=== PATIENT | female | born 1955 | race Caucasian/White ===

== ENCOUNTER → 2020-06-12 | Outpatient (CLI) | payer MEDICAID, MEDICARE | END | disposition home or self-care (01) | LOC: RAD 11:25 | PROVIDERS: ATTEND Internal Medicine Cardiovascular Disease | DX: I27.9 Pulmonary heart disease, unspecified (principal); R06.02 Shortness of breath; K44.9 Diaphragmatic hernia without obstruction or gangrene | CPT/HCPCS: 71045; 78582; A9540; A9558 ==

== ENCOUNTER → 2020-08-13 | Outpatient (CLI) | payer MEDICARE | END | disposition home or self-care (01) | LOC: CVU 12:56 | PROVIDERS: ATTEND Internal Medicine Cardiovascular Disease | DX: I36.1 Nonrheumatic tricuspid (valve) insufficiency (principal); I86.8 Varicose veins of other specified sites; R60.0 Localized edema; I51.7 Cardiomegaly; I87.2 Venous insufficiency (chronic) (peripheral) | CPT/HCPCS: 93306; 93970 ==

== ENCOUNTER 2020-10-03 13:02 | Inpatient (IN) | payer MEDICARE ==
[~2020-10-03] VITALS: Ht 165.1 cm; Wt 65.8 kg
--- NOTE | 2020-10-03 13:55 | NUR ---
delphi developer: Pt ambulatory to room from lobby at this time.
[2020-10-03] MEDS ORDERED: SODIUM CHLORIDE 0.9% 1,000ML IVBOLUS ONE (14:30)
[2020-10-03] MEDS ORDERED: ONDANSETRON 2MG/ML, 2ML IVPush ONE ×2 (14:30→19:00)
[2020-10-03] MEDS ORDERED: ONDANSETRON 2MG/ML, 2ML ONE (14:31)
[2020-10-03] MEDS ORDERED: MORPHINE SULFATE 4 MG/ML, 1ML ONE (14:31)
[2020-10-03] MEDS: MORPHINE SULFATE 4 MG/ML, 1ML IVPush PRN ×3 (14:34→23:47)
[2020-10-03 14:42] LABS: BASOPHILS % (AUTO) 1 % (0-1); EOSINOPHILS % (AUTO) 0 % (1-7); LYMPHOCYTES % (AUTO) 12 % (22-44); MEAN CORPUSCULAR HEMOGLOBIN 22.2 pg (27.0-34.8); MEAN CORPUSCULAR HGB CONC 30.8 g/dL (32.4-35.8); MEAN PLATELET VOLUME 8.3 fL (7.4-10.4); MONOCYTES % (AUTO) 9 % (2-9); NEUTROPHILS % (AUTO) 78 % (42-75); PLATELET COUNT 360 x10^3/uL (130-400); RED BLOOD COUNT 5.89 x10^6/uL (3.82-5.3); RED CELL DISTRIBUTION WIDTH 19.4 % (9.6-15.2)
[2020-10-03 14:53] LABS: ALANINE AMINOTRANSFERASE 100 U/L (12-78); ALBUMIN 3.1 g/dL (3.4-5.0); ANION GAP 8 mmol/L (5-15); CALCIUM 8.9 mg/dL (8.5-10.1); CHLORIDE 106 mmol/L (98-107)
[2020-10-03 14:55] LABS: ALKALINE PHOSPHATASE 148 U/L (45-117); BILIRUBIN,TOTAL 0.7 mg/dL (0.2-1.0); TOTAL PROTEIN 7.9 g/dL (6.4-8.2)
[2020-10-03 15:04] LABS: ANISOCYTOSIS 1+; MICROCYTOSIS 1+; OVALOCYTES 1+
[2020-10-03 15:05] LABS: <PLATELET ESTIMATE> ADEQUATE; <PLT MORPHOLOGY> NORMAL PLT MORPH; HYPOCHROMIA 1+
[2020-10-03] MEDS ORDERED: OMNIPAQUE 350 MG/ML, 100ML BOTTLE ONE (15:51)
[2020-10-03 16:46] LABS: INTERNATIONAL NORMALIZED RATIO 1.05 (0.93-1.1); PARTIAL THROMBOPLASTIN TIME 28 Seconds (25-31); PROTHROMBIN TIME 11.2 Seconds (9.6-11.5)
[2020-10-03] MEDS ORDERED: HEPARIN 25,000 UNITS/250ML PMX 250 ML IV PRN (17:00)
[2020-10-03] MEDS ORDERED: HEPARIN 5,000 UNITS/ML, 1ML IV PRN (17:00)
[2020-10-03] MEDS ORDERED: HEPARIN 5,000 UNITS/ML, 1ML IV ONE (17:00)
[2020-10-03] MEDS ORDERED: HEPARIN 25,000 UNITS/250ML PMX 250 ML ONE (17:06)
[2020-10-03] MEDS ORDERED: HEPARIN 5,000 UNITS/ML, 1ML ONE (17:06)
--- NOTE | 2020-10-03 17:15 | NUR ---
HEPARIN DOSAGES CONFIRMED WITH PHARMACY. CECILLE Frederick RN VERIFIED HEPARIN BEDSIDE.
--- NOTE | 2020-10-03 18:00 | NUR ---
REPORT TO TAY PALENCIA
[2020-10-03] MEDS ORDERED: SODIUM CHLORIDE 0.9% 250 ML IV SCH (19:00)
[2020-10-03] MEDS ORDERED: hydrALAzine 20 MG/ML, 1ML IVPush PRN (19:00)
[2020-10-03] MEDS ORDERED: BISACODYL 10 MG SUPP PR PRN (19:00)
[2020-10-03] MEDS ORDERED: ONDANSETRON ODT 4 MG PO PRN (19:00)
[2020-10-03] MEDS ORDERED: LORazepam 0.5MG TABLET PO PRN (19:00)
[2020-10-03] MEDS ORDERED: ACETAMINOPHEN 325 MG TABLET PO PRN (19:00)
[2020-10-03] MEDS ORDERED: MORPHINE SULFATE 4 MG/ML, 1ML IVPush ONE (19:00)
[2020-10-03] MEDS ORDERED: ONDANSETRON 2MG/ML, 2ML IVPush PRN (19:00)
[2020-10-03] MEDS ORDERED: NITROGLYCERIN 0.4 MG BOTTLE (25 TABS) SL PRN (19:00)
[2020-10-03 19:21] VITALS: BP 128/87
[2020-10-03 19:41] LABS: TROPONIN I 0.062 ng/mL (0.000-0.045)
[2020-10-03 22:47] VITALS: BP 139/72
[2020-10-03] MEDS: SODIUM CHLORIDE 0.9% 1,000 ML IV SCH (23:45)
[2020-10-04 00:45] VITALS: BP 131/88
[2020-10-04 02:59] LABS: TROPONIN I 0.061 ng/mL (0.000-0.045)
[2020-10-04 05:46] LABS: BASOPHILS % (AUTO) 0 % (0-1); EOSINOPHILS % (AUTO) 0 % (1-7); LYMPHOCYTES % (AUTO) 5 % (22-44); MEAN CORPUSCULAR HEMOGLOBIN 22.2 pg (27.0-34.8); MEAN CORPUSCULAR HGB CONC 31.1 g/dL (32.4-35.8); MEAN PLATELET VOLUME 8.2 fL (7.4-10.4); MONOCYTES % (AUTO) 7 % (2-9); NEUTROPHILS % (AUTO) 88 % (42-75); PLATELET COUNT 367 x10^3/uL (130-400); RED BLOOD COUNT 5.35 x10^6/uL (3.82-5.3); RED CELL DISTRIBUTION WIDTH 19.6 % (9.6-15.2)
[2020-10-04 05:54] LABS: ALANINE AMINOTRANSFERASE 81 U/L (12-78); ALBUMIN 2.6 g/dL (3.4-5.0); ANION GAP 5 mmol/L (5-15); CALCIUM 7.8 mg/dL (8.5-10.1); CHLORIDE 107 mmol/L (98-107)
[2020-10-04 06:03] LABS: ALKALINE PHOSPHATASE 129 U/L (45-117); BILIRUBIN,TOTAL 0.7 mg/dL (0.2-1.0); CHOL/HDL RATIO 3.1; CHOLESTEROL, TOTAL 141 mg/dL (140-239); CREATININE 1.14 mg/dL (0.55-1.02); HDL CHOL % 33 % (28-40); HDL CHOLESTEROL (DIRECT) 46 mg/dL (40-60); LDL CHOLESTEROL,CALCULATED 79 mg/dL (54-169); LDL/HDL RATIO 1.7 (0.5-3.0); TOTAL PROTEIN 6.9 g/dL (6.4-8.2); TRIGLYCERIDES 81 mg/dL (50-200); VLDL CHOLESTEROL 16 mg/dL (0-25)
[2020-10-04 06:22] LABS: MICROSCOPIC AUTO
[2020-10-04] MEDS: OXYcodone IR 5MG TABLET PO PRN (06:24)
[2020-10-04 06:25] VITALS: BP 125/84
[2020-10-04] MEDS ORDERED: LEVO75CA5 PO (06:35)
[2020-10-04] MEDS: SENNA/DOCUSATE TABLET PO SCH (08:13)
[2020-10-04] MEDS: PANTOPRAZOLE 40MG TABLET PO SCH (08:13)
[2020-10-04] MEDS: MORPHINE SULFATE 4 MG/ML, 1ML IVPush PRN (08:35)
[2020-10-04] MEDS: LEVOTHYROXINE 75 MCG TABLET PO SCH (09:00)
[2020-10-04 13:11] VITALS: BP 113/7
[2020-10-04] MEDS: CEFTRIAXONE 1,000 MG in DEXTROSE 5% 50 ML IVPB SCH (13:52)
[2020-10-04] MEDS: SODIUM CHLORIDE 0.9% 1,000 ML IV SCH (16:39)
[2020-10-04] MEDS ORDERED: OMNIPAQUE 350 MG/ML, 75ML BOTTLE ONE (17:28)
[2020-10-04 18:44] LABS: INTERNATIONAL NORMALIZED RATIO 1.07 (0.93-1.1); PROTHROMBIN TIME 11.4 Seconds (9.6-11.5)
[2020-10-04] MEDS: ENOXAPARIN 60 MG/0.6 ML SQ SCH (18:47)
[2020-10-04 19:07] VITALS: BP 119/79
[2020-10-04] MEDS ORDERED: WARFARIN 5 MG TABLET PO-COUM ONE (19:30)
[2020-10-05] VITALS: BP 102/71
[2020-10-05 05:31] LABS: BASOPHILS % (AUTO) 0 % (0-1); EOSINOPHILS % (AUTO) 0 % (1-7); LYMPHOCYTES % (AUTO) 8 % (22-44); MEAN CORPUSCULAR HEMOGLOBIN 21.8 pg (27.0-34.8); MEAN CORPUSCULAR HGB CONC 30.7 g/dL (32.4-35.8); MEAN PLATELET VOLUME 8.3 fL (7.4-10.4); MONOCYTES % (AUTO) 8 % (2-9); NEUTROPHILS % (AUTO) 83 % (42-75); PLATELET COUNT 311 x10^3/uL (130-400); RED BLOOD COUNT 5.02 x10^6/uL (3.82-5.3)
[2020-10-05 05:37] LABS: INTERNATIONAL NORMALIZED RATIO 1.04 (0.93-1.1); PROTHROMBIN TIME 11.1 Seconds (9.6-11.5)
[2020-10-05 05:40] LABS: CHLORIDE 107 mmol/L (98-107)
[2020-10-05 05:50] LABS: ALANINE AMINOTRANSFERASE 57 U/L (12-78); ALBUMIN 2.1 g/dL (3.4-5.0); ALKALINE PHOSPHATASE 98 U/L (45-117); ANION GAP 5 mmol/L (5-15); BILIRUBIN,TOTAL 0.5 mg/dL (0.2-1.0); CALCIUM 7.8 mg/dL (8.5-10.1); CREATININE 0.98 mg/dL (0.55-1.02); TOTAL PROTEIN 5.9 g/dL (6.4-8.2)
[2020-10-05] MEDS: ENOXAPARIN 60 MG/0.6 ML SQ SCH ×2 (06:28→18:22)
[2020-10-05] MEDS: LEVOTHYROXINE 75 MCG TABLET PO SCH (06:28)
[2020-10-05] MEDS: PANTOPRAZOLE 40MG TABLET PO SCH (06:28)
[2020-10-05 09:18] VITALS: BP 108/75
[2020-10-05] MEDS: SODIUM CHLORIDE 0.9% 1,000 ML IV SCH (09:52)
[2020-10-05] MEDS: SENNA/DOCUSATE TABLET PO SCH (09:52)
[2020-10-05] MEDS: OXYcodone IR 5MG TABLET PO PRN ×2 (09:53→16:47)
[2020-10-05] MEDS: CEFTRIAXONE 1,000 MG in DEXTROSE 5% 50 ML IVPB SCH (14:46)
[2020-10-05 15:24] VITALS: BP 98/64
[2020-10-05] MEDS ORDERED: NITROGLYCERIN 0.4 MG/SPRAY SL PRN (16:00)
[2020-10-05] MEDS ORDERED: NITROGLYCERIN 0.4 MG BOTTLE (25 TABS) SL PRN (16:00)
[2020-10-05] MEDS ORDERED: WARFARIN 5 MG TABLET PO-COUM ONE (18:00)
[2020-10-05 21:14] VITALS: BP 102/67
[2020-10-05] MEDS: MORPHINE SULFATE 4 MG/ML, 1ML IVPush PRN (21:21)
[2020-10-06 02:02] VITALS: BP 96/65
[2020-10-06] MEDS: SODIUM CHLORIDE 0.9% 1,000 ML IV SCH (02:06)
[2020-10-06 05:21] LABS: INTERNATIONAL NORMALIZED RATIO 1.07 (0.93-1.1); PROTHROMBIN TIME 11.4 Seconds (9.6-11.5)
[2020-10-06] MEDS: PANTOPRAZOLE 40MG TABLET PO SCH (05:30)
[2020-10-06] MEDS: ENOXAPARIN 60 MG/0.6 ML SQ SCH ×2 (05:30→18:29)
[2020-10-06] MEDS: LEVOTHYROXINE 75 MCG TABLET PO SCH (05:30)
[2020-10-06] MEDS: OXYcodone IR 5MG TABLET PO PRN ×3 (05:31→22:33)
[2020-10-06 07:50] VITALS: BP_SYST 101; BP_SYST 94; BP_DIAS 68
[2020-10-06] MEDS: SENNA/DOCUSATE TABLET PO SCH (09:28)
[2020-10-06] MEDS: POLYETHYLENE GLYCOL 17 GM PACKET PO PRN (09:29)
[2020-10-06] MEDS: CEFTRIAXONE 1,000 MG in DEXTROSE 5% 50 ML IVPB SCH (14:31)
[2020-10-06 15:00] VITALS: BP 103/76
[2020-10-06] MEDS ORDERED: WARFARIN 5 MG TABLET PO-COUM ONE (18:00)
[2020-10-06 18:41] VITALS: BP 94/61
[2020-10-07 01:08] VITALS: BP 106/68
[2020-10-07 04:29] LABS: BASOPHILS % (AUTO) 0 % (0-1); EOSINOPHILS % (AUTO) 1 % (1-7); LYMPHOCYTES % (AUTO) 16 % (22-44); MEAN CORPUSCULAR HEMOGLOBIN 22.2 pg (27.0-34.8); MEAN CORPUSCULAR HGB CONC 31.6 g/dL (32.4-35.8); MEAN PLATELET VOLUME 8.2 fL (7.4-10.4); MONOCYTES % (AUTO) 11 % (2-9); NEUTROPHILS % (AUTO) 72 % (42-75); PLATELET COUNT 350 x10^3/uL (130-400); RED BLOOD COUNT 4.69 x10^6/uL (3.82-5.3); RED CELL DISTRIBUTION WIDTH 19.5 % (9.6-15.2)
[2020-10-07 04:35] LABS: INTERNATIONAL NORMALIZED RATIO 1.25 (0.93-1.1); PROTHROMBIN TIME 13.2 Seconds (9.6-11.5)
[2020-10-07 04:38] LABS: ANION GAP 3 mmol/L (5-15); CALCIUM 7.9 mg/dL (8.5-10.1); CHLORIDE 109 mmol/L (98-107)
[2020-10-07 04:39] LABS: CREATININE 1.05 mg/dL (0.55-1.02)
[2020-10-07] MEDS: PANTOPRAZOLE 40MG TABLET PO SCH (05:45)
[2020-10-07] MEDS: ENOXAPARIN 60 MG/0.6 ML SQ SCH ×2 (05:45→17:54)
[2020-10-07] MEDS: LEVOTHYROXINE 75 MCG TABLET PO SCH (05:45)
[2020-10-07] MEDS: OXYcodone IR 5MG TABLET PO PRN ×2 (06:21→14:28)
[2020-10-07 06:35] VITALS: BP 109/70
[2020-10-07] MEDS: SENNA/DOCUSATE TABLET PO SCH ×2 (09:16→21:17)
[2020-10-07] MEDS: POLYETHYLENE GLYCOL 17 GM PACKET PO SCH (10:13)
[2020-10-07 12:10] VITALS: BP 121/81
[2020-10-07] MEDS: CEFTRIAXONE 1,000 MG in DEXTROSE 5% 50 ML IVPB SCH (14:02)
[2020-10-07] MEDS ORDERED: WARFARIN 10 MG TABLET PO-COUM ONE (18:00)
[2020-10-07 18:56] VITALS: BP 110/76
[2020-10-07 23:32] VITALS: BP 108/71
[2020-10-08] MEDS: OXYcodone IR 5MG TABLET PO PRN ×4 (03:00→20:52)
[2020-10-08 04:53] LABS: BASOPHILS % (AUTO) 1 % (0-1); EOSINOPHILS % (AUTO) 2 % (1-7); LYMPHOCYTES % (AUTO) 15 % (22-44); MEAN CORPUSCULAR HEMOGLOBIN 22.4 pg (27.0-34.8); MEAN CORPUSCULAR HGB CONC 31.8 g/dL (32.4-35.8); MEAN PLATELET VOLUME 8.8 fL (7.4-10.4); MONOCYTES % (AUTO) 11 % (2-9); NEUTROPHILS % (AUTO) 71 % (42-75); PLATELET COUNT 308 x10^3/uL (130-400); RED BLOOD COUNT 4.67 x10^6/uL (3.82-5.3); RED CELL DISTRIBUTION WIDTH 19.2 % (9.6-15.2)
[2020-10-08 04:56] LABS: INTERNATIONAL NORMALIZED RATIO 1.65 (0.93-1.1); PROTHROMBIN TIME 17.2 Seconds (9.6-11.5)
[2020-10-08 05:00] LABS: ANION GAP 5 mmol/L (5-15); CALCIUM 8.1 mg/dL (8.5-10.1); CHLORIDE 107 mmol/L (98-107)
[2020-10-08 05:02] LABS: CREATININE 0.93 mg/dL (0.55-1.02)
[2020-10-08] MEDS: ENOXAPARIN 60 MG/0.6 ML SQ SCH ×2 (05:53→17:48)
[2020-10-08] MEDS: LEVOTHYROXINE 75 MCG TABLET PO SCH (05:53)
[2020-10-08] MEDS: PANTOPRAZOLE 40MG TABLET PO SCH (05:53)
[2020-10-08 06:26] VITALS: BP 119/79
[2020-10-08] MEDS: SENNA/DOCUSATE TABLET PO SCH ×2 (09:20→20:34)
[2020-10-08] MEDS: POLYETHYLENE GLYCOL 17 GM PACKET PO SCH ×2 (09:20→20:34)
[2020-10-08] MEDS ORDERED: POTASSIUM CHLORIDE 20 MEQ TAB.ER.PRT PO ONE (12:00)
[2020-10-08 13:23] VITALS: BP 115/76
[2020-10-08] MEDS: CEFTRIAXONE 1,000 MG in DEXTROSE 5% 50 ML IVPB SCH (14:15)
[2020-10-08] MEDS ORDERED: WARFARIN 7.5 MG TABLET PO-COUM ONE (18:00)
[2020-10-08 19:54] VITALS: BP 126/82
[2020-10-09 00:57] VITALS: BP 130/83
[2020-10-09] MEDS: POLYETHYLENE GLYCOL 17 GM PACKET PO PRN (04:22)
[2020-10-09 05:06] LABS: BASOPHILS % (AUTO) 1 % (0-1); EOSINOPHILS % (AUTO) 2 % (1-7); LYMPHOCYTES % (AUTO) 13 % (22-44); MEAN CORPUSCULAR HEMOGLOBIN 22.1 pg (27.0-34.8); MEAN CORPUSCULAR HGB CONC 31.2 g/dL (32.4-35.8); MEAN PLATELET VOLUME 8.4 fL (7.4-10.4); MONOCYTES % (AUTO) 11 % (2-9); NEUTROPHILS % (AUTO) 73 % (42-75); PLATELET COUNT 370 x10^3/uL (130-400); RED BLOOD COUNT 4.84 x10^6/uL (3.82-5.3); RED CELL DISTRIBUTION WIDTH 19.2 % (9.6-15.2)
[2020-10-09 05:17] LABS: INTERNATIONAL NORMALIZED RATIO 2.68 (0.93-1.1); PROTHROMBIN TIME 27.4 Seconds (9.6-11.5)
[2020-10-09 05:19] LABS: CALCIUM 8.6 mg/dL (8.5-10.1)
[2020-10-09 05:31] LABS: ANION GAP 3 mmol/L (5-15); CHLORIDE 106 mmol/L (98-107)
[2020-10-09] MEDS: ENOXAPARIN 60 MG/0.6 ML SQ SCH (06:15)
[2020-10-09 06:47] VITALS: BP 122/80
[2020-10-09] MEDS: SENNA/DOCUSATE TABLET PO SCH (08:16)
[2020-10-09] MEDS: POLYETHYLENE GLYCOL 17 GM PACKET PO SCH (08:16)
[2020-10-09] MEDS: OXYcodone IR 5MG TABLET PO PRN (08:17)
[2020-10-09] MEDS: PANTOPRAZOLE 40MG TABLET PO SCH (08:17)
[2020-10-09] MEDS: LEVOTHYROXINE 75 MCG TABLET PO SCH (08:17)
[2020-10-09 12:42] LABS: INTERNATIONAL NORMALIZED RATIO 3.17 (0.93-1.1); PROTHROMBIN TIME 32.1 Seconds (9.6-11.5)
[2020-10-09] MEDS ORDERED: CEFD300C37 PO (12:48)
[2020-10-09] MEDS ORDERED: WARF1TAB74 PO (13:20)
== END 2020-10-09 13:37 | disposition home or self-care (01) | DRG 698 ==
LOC: ED 16:40 → EDIP 17:00 → 3N 18:15 → 5SO 22:40 → DCLOUNGE 10-09 13:29
PROVIDERS: ADMIT Internal Medicine; ATTEND Hospitalist
DX: N28.0 Ischemia and infarction of kidney (principal); I26.99 Other pulmonary embolism without acute cor pulmonale; N39.0 Urinary tract infection, site not specified; B96.20 Unspecified Escherichia coli [E. coli] as the cause of diseases classified elsewhere; E03.9 Hypothyroidism, unspecified; I27.20 Pulmonary hypertension, unspecified; I72.9 Aneurysm of unspecified site; I07.1 Rheumatic tricuspid insufficiency; K59.00 Constipation, unspecified; Z79.01 Long term (current) use of anticoagulants; Z86.711 Personal history of pulmonary embolism; Z91.14 Patient's other noncompliance with medication regimen
CPT/HCPCS: 36415; 71045; 71275; 74177; 78582; 80048; 80053; 80061; 81001; 83690; 83735; 84100; 84443; 84484; 85025; 85520; 85610; 85730; 87077; 87086; 87186; 93005; 93306; 93970; 96361; 96374; 96375; G0378; J0696; J1644; J1650; J2405; Q9967; A9540; A9558; C9898; J2270; J7030

== ENCOUNTER → 2020-10-10 | Outpatient (CLI) | payer MEDICARE ==
[~2020-10-10] MED LIST: CEFD300C37 PO; LEVO75CA5 PO; WARF1TAB74 PO
[2020-10-10 14:53] LABS: INTERNATIONAL NORMALIZED RATIO 1.85 (0.93-1.1); PROTHROMBIN TIME 19.2 Seconds (9.6-11.5)
== END | disposition home or self-care (01) ==
LOC: LAB 14:26
PROVIDERS: ATTEND Hospitalist
DX: I26.99 Other pulmonary embolism without acute cor pulmonale (principal)
CPT/HCPCS: 36415; 85610

== ENCOUNTER 2020-10-11 23:00 | Inpatient (IN) | payer MEDICARE ==
[~2020-10-11] VITALS: Ht 165.1 cm; Wt 63.6 kg
--- NOTE | 2020-10-12 01:55 | NUR ---
PT WALKED BACK TO ROOM AT THIS TIME. PT REPORTS CHEST PAIN STARTING LAST NIGHT AT 1999, STERNAL AREA, NO RADIATION OR RELIEF, PULSES 2+, GROSS NEURO INTACT, RECENTLY ADMITTED FOR BLOOD CLOTS, DC'D AND FOLLOWING UP WITH [facility], STATES "I CANT REACH ANYONE TO TELL ME MY DOSES". PT WAS RESTING WHEN CP STARTED THIS EVENING. Patient is resting comfortably in bed. Bed in lowest, rails engaged, call light on lap. Vital Signs within normal limits. PLACED ON SPO2/BP/ECG MONITORING, WCTM.
[2020-10-12 02:19] LABS: BASOPHILS % (AUTO) 1 % (0-1); EOSINOPHILS % (AUTO) 1 % (1-7); LYMPHOCYTES % (AUTO) 14 % (22-44); MEAN CORPUSCULAR HEMOGLOBIN 22.6 pg (27.0-34.8); MEAN PLATELET VOLUME 8.1 fL (7.4-10.4); MONOCYTES % (AUTO) 12 % (2-9); NEUTROPHILS % (AUTO) 72 % (42-75); PLATELET COUNT 381 x10^3/uL (130-400); RED BLOOD COUNT 4.55 x10^6/uL (3.82-5.3); RED CELL DISTRIBUTION WIDTH 19.3 % (9.6-15.2)
[2020-10-12 02:29] LABS: INTERNATIONAL NORMALIZED RATIO 1.33 (0.93-1.1)
[2020-10-12 02:30] LABS: ALANINE AMINOTRANSFERASE 111 U/L (12-78); ALBUMIN 2.7 g/dL (3.4-5.0); ANION GAP 4 mmol/L (5-15); CALCIUM 8.2 mg/dL (8.5-10.1); CHLORIDE 106 mmol/L (98-107); CREATININE 1.17 mg/dL (0.55-1.02)
[2020-10-12 02:34] LABS: ALKALINE PHOSPHATASE 138 U/L (45-117); BILIRUBIN,TOTAL 0.3 mg/dL (0.2-1.0); TOTAL PROTEIN 7.1 g/dL (6.4-8.2); TROPONIN I < 0.015 ng/mL (0.000-0.045)
--- NOTE | 2020-10-12 03:14 | NUR ---
Patient is resting comfortably in bed. Bed in lowest, rails engaged, call light on lap. No changes in condition at this time. Vital Signs within normal limits. WCTM.
[2020-10-12] MEDS ORDERED: ENOXAPARIN 60 MG/0.6 ML ONE (03:54)
[2020-10-12] MEDS ORDERED: ENOXAPARIN 60 MG/0.6 ML SQ ONE (04:00)
--- NOTE | 2020-10-12 04:05 | NUR ---
Patient is resting comfortably in bed. Bed in lowest, rails engaged, call light on lap. placed on 2L NC to maintain SPO2 in the 90s. Dionte BLACK at bedside for eval, pt medicated per may. waiting for admit bed, hospital bed ordered at this time. WCLUIS M.
[2020-10-12] MEDS ORDERED: NS + 20MEQ KCL 1,000 ML IV ONE (04:28)
[2020-10-12] MEDS ORDERED: hydrALAzine 20 MG/ML, 1ML IVPush PRN (04:30)
[2020-10-12] MEDS ORDERED: ONDANSETRON 2MG/ML, 2ML IVPush PRN (04:30)
[2020-10-12] MEDS ORDERED: GUAIFENESIN/DM 200-20MG, 10ML UDC PO PRN (04:30)
[2020-10-12] MEDS ORDERED: ZOLPIDEM 5MG TABLET PO PRN (04:30)
[2020-10-12] MEDS ORDERED: ACETAMINOPHEN 325 MG TABLET PO PRN (04:30)
[2020-10-12] MEDS: NS + 20MEQ KCL 1,000 ML IV SCH ×2 (04:30→14:44)
[2020-10-12] MEDS ORDERED: Enoxaparin 1 mg/kg protocol SQ SCH (04:30)
[2020-10-12] MEDS ORDERED: CYCLOBENZAPRINE 10 MG TABLET PO PRN (04:30)
[2020-10-12] MEDS ORDERED: morphine SULFATE 10 MG/ML, 1ML IVPush PRN (04:30)
--- NOTE | 2020-10-12 04:40 | NUR ---
PT MOVED TO HOSPITAL BED AT THIS TIME. MEDICATED PER May,, AWAITING BED PLACEMENT. WCTM.
--- NOTE | 2020-10-12 04:52 | NUR ---
REPORT CALLED TO TRISTIN CROSS, PT CARE TO BE TRANSFERRED ON ARRIVAL TO FLOOR. PT MOVED TO HOSPITAL BED FOR COMFORT.
[2020-10-12 05:33] VITALS: BP 113/74
[2020-10-12] MEDS: LEVOTHYROXINE 75 MCG TABLET PO SCH (05:58)
[2020-10-12] MEDS: OXYcodone IR 5MG TABLET PO PRN ×3 (06:00→21:08)
[2020-10-12 06:54] VITALS: BP 118/72
[2020-10-12 12:21] VITALS: BP 109/69
[2020-10-12] MEDS ORDERED: WARFARIN 10 MG TABLET PO-COUM ONE (14:30)
[2020-10-12] MEDS ORDERED: WARFARIN 5 MG TABLET PO-COUM ONE (14:41)
[2020-10-12] MEDS: ENOXAPARIN 60 MG/0.6 ML SQ SCH (15:38)
[2020-10-12 18:34] VITALS: BP 93/59
[2020-10-13 00:18] VITALS: BP 91/61
[2020-10-13] MEDS: NS + 20MEQ KCL 1,000 ML IV SCH ×3 (00:55→20:52)
[2020-10-13] MEDS: LEVOTHYROXINE 75 MCG TABLET PO SCH (05:02)
[2020-10-13] MEDS: ENOXAPARIN 60 MG/0.6 ML SQ SCH ×2 (05:02→15:44)
[2020-10-13] MEDS: DOCUSATE 100 MG CAPSULE PO PRN ×2 (05:12→20:52)
[2020-10-13 05:50] LABS: ANION GAP 5 mmol/L (5-15); CALCIUM 8.1 mg/dL (8.5-10.1); CHLORIDE 109 mmol/L (98-107); CREATININE 0.88 mg/dL (0.55-1.02); IRON LEVEL 24 mcg/dL (50-170)
[2020-10-13 05:51] LABS: ABSOLUTE RETICS # 0.037 x10^6/uL (0.5-2.5); BASOPHILS % (AUTO) 1 % (0-1); EOSINOPHILS % (AUTO) 2 % (1-7); LYMPHOCYTES % (AUTO) 24 % (22-44); MEAN CORPUSCULAR HEMOGLOBIN 22.3 pg (27.0-34.8); MEAN CORPUSCULAR HGB CONC 31.6 g/dL (32.4-35.8); MEAN PLATELET VOLUME 8.6 fL (7.4-10.4); MONOCYTES % (AUTO) 10 % (2-9); NEUTROPHILS % (AUTO) 62 % (42-75); PLATELET COUNT 343 x10^3/uL (130-400); RED CELL DISTRIBUTION WIDTH 19.3 % (9.6-15.2); RETICULOCYTE COUNT % 0.86 % (0.5-1.5)
[2020-10-13 05:54] LABS: % IRON SATURATION 8 % (20-55); TOTAL IRON BINDING CAPACITY 316 mcg/dL (250-450)
[2020-10-13] MEDS: OXYcodone IR 5MG TABLET PO PRN ×4 (06:42→23:09)
[2020-10-13 07:10] VITALS: BP 112/80
[2020-10-13 13:20] LABS: INTERNATIONAL NORMALIZED RATIO 1.33 (0.93-1.1)
[2020-10-13 14:12] VITALS: BP 114/74
[2020-10-13] MEDS ORDERED: MAGNESIUM HYDROXIDE 8%, 30ML UDC PO PRN (16:30)
[2020-10-13] MEDS ORDERED: DOCUSATE 50 MG/5 ML, 10ML UDC PO PRN (16:30)
[2020-10-13] MEDS ORDERED: WARFARIN 10 MG TABLET PO-COUM ONE (18:00)
[2020-10-13 19:20] VITALS: BP 108/72
[2020-10-14 03:23] VITALS: BP 112/78
[2020-10-14] MEDS: LEVOTHYROXINE 75 MCG TABLET PO SCH (05:00)
[2020-10-14] MEDS: ENOXAPARIN 60 MG/0.6 ML SQ SCH ×2 (05:00→16:22)
[2020-10-14] MEDS: OXYcodone IR 5MG TABLET PO PRN ×4 (05:01→20:23)
[2020-10-14 05:47] LABS: INTERNATIONAL NORMALIZED RATIO 1.65 (0.93-1.1); PROTHROMBIN TIME 17.2 Seconds (9.6-11.5)
[2020-10-14 05:52] LABS: ALBUMIN 2.4 g/dL (3.4-5.0); ANION GAP 4 mmol/L (5-15); BASOPHILS % (AUTO) 1 % (0-1); CHLORIDE 109 mmol/L (98-107); EOSINOPHILS % (AUTO) 1 % (1-7); LYMPHOCYTES % (AUTO) 22 % (22-44); MEAN CORPUSCULAR HEMOGLOBIN 21.9 pg (27.0-34.8); MEAN CORPUSCULAR HGB CONC 30.9 g/dL (32.4-35.8); MEAN PLATELET VOLUME 8.6 fL (7.4-10.4); MONOCYTES % (AUTO) 8 % (2-9); NEUTROPHILS % (AUTO) 68 % (42-75); PLATELET COUNT 375 x10^3/uL (130-400); RED BLOOD COUNT 4.52 x10^6/uL (3.82-5.3); RED CELL DISTRIBUTION WIDTH 19.9 % (9.6-15.2)
[2020-10-14 05:57] LABS: ALANINE AMINOTRANSFERASE 85 U/L (12-78); ALKALINE PHOSPHATASE 154 U/L (45-117); BILIRUBIN,TOTAL 0.3 mg/dL (0.2-1.0); CREATININE 1.01 mg/dL (0.55-1.02); TOTAL PROTEIN 6.4 g/dL (6.4-8.2)
[2020-10-14] MEDS: NS + 20MEQ KCL 1,000 ML IV SCH (07:06)
[2020-10-14 07:40] VITALS: BP 117/81
[2020-10-14 14:10] VITALS: BP 133/83
[2020-10-14] MEDS ORDERED: WARFARIN 10 MG TABLET PO-COUM ONE (18:00)
[2020-10-14 18:34] VITALS: BP 126/78
[2020-10-15 00:53] VITALS: BP 107/72
[2020-10-15] MEDS: OXYcodone IR 5MG TABLET PO PRN ×3 (01:35→14:14)
[2020-10-15] MEDS: LEVOTHYROXINE 75 MCG TABLET PO SCH (05:52)
[2020-10-15] MEDS: ENOXAPARIN 60 MG/0.6 ML SQ SCH ×2 (05:53→18:00)
[2020-10-15 06:12] LABS: BASOPHILS % (AUTO) 1 % (0-1); EOSINOPHILS % (AUTO) 2 % (1-7); LYMPHOCYTES % (AUTO) 20 % (22-44); MEAN CORPUSCULAR HEMOGLOBIN 21.9 pg (27.0-34.8); MEAN CORPUSCULAR HGB CONC 30.6 g/dL (32.4-35.8); MEAN PLATELET VOLUME 8.2 fL (7.4-10.4); MONOCYTES % (AUTO) 9 % (2-9); NEUTROPHILS % (AUTO) 69 % (42-75); PLATELET COUNT 390 x10^3/uL (130-400); RED BLOOD COUNT 4.55 x10^6/uL (3.82-5.3); RED CELL DISTRIBUTION WIDTH 19.3 % (9.6-15.2)
[2020-10-15 06:17] LABS: INTERNATIONAL NORMALIZED RATIO 2.43 (0.93-1.1); PROTHROMBIN TIME 24.9 Seconds (9.6-11.5)
[2020-10-15 06:25] LABS: ALBUMIN 2.4 g/dL (3.4-5.0); ANION GAP 4 mmol/L (5-15); CHLORIDE 109 mmol/L (98-107)
[2020-10-15 06:28] LABS: ALANINE AMINOTRANSFERASE 76 U/L (12-78); ALKALINE PHOSPHATASE 144 U/L (45-117); BILIRUBIN,TOTAL 0.3 mg/dL (0.2-1.0); TOTAL PROTEIN 6.5 g/dL (6.4-8.2)
[2020-10-15 07:15] VITALS: BP 116/74
[2020-10-15 15:00] VITALS: BP 122/78
[2020-10-15 15:10] LABS: OCCULT BLOOD NEGATIVE (NEGATIVE)
[2020-10-15] MEDS ORDERED: OXYC5TAB98 PO (16:04)
[2020-10-15] MEDS ORDERED: IRON1TAB37 PO (16:10)
[2020-10-15] MEDS ORDERED: WARFARIN 2 MG TABLET PO-COUM ONE (18:00)
== END 2020-10-15 18:29 | disposition home or self-care (01) | DRG 175 ==
LOC: ED 10-12 02:59 → EDIP 10-12 04:23 → 4WST 10-12 05:17
PROVIDERS: ADMIT Internal Medicine; ATTEND Family Medicine
DX: I26.99 Other pulmonary embolism without acute cor pulmonale (principal); J96.01 Acute respiratory failure with hypoxia; N17.9 Acute kidney failure, unspecified; N28.0 Ischemia and infarction of kidney; E87.1 Hypo-osmolality and hyponatremia; D68.59 Other primary thrombophilia; D50.9 Iron deficiency anemia, unspecified; D72.829 Elevated white blood cell count, unspecified; E03.9 Hypothyroidism, unspecified; Z79.01 Long term (current) use of anticoagulants; Z79.899 Other long term (current) drug therapy
CPT/HCPCS: 36415; 71045; 76700; 80048; 80053; 82272; 82728; 83540; 83550; 83735; 84100; 84484; 85025; 85045; 85610; 93005; 96372; 99285; G0378; J1650; J3480

== ENCOUNTER → 2020-10-17 | Outpatient (CLI) | payer MEDICARE ==
[~2020-10-17] MED LIST changes: +IRON1TAB37 PO; +OXYC5TAB98 PO
[2020-10-17 13:03] LABS: INTERNATIONAL NORMALIZED RATIO 2.07 (0.93-1.1); PROTHROMBIN TIME 21.4 Seconds (9.6-11.5)
== END | disposition home or self-care (01) ==
LOC: LAB 12:36
PROVIDERS: ATTEND Internal Medicine Cardiovascular Disease
DX: I26.09 Other pulmonary embolism with acute cor pulmonale (principal)
CPT/HCPCS: 36415; 85610

== ENCOUNTER → 2020-10-24 | Outpatient (CLI) | payer MEDICARE ==
[2020-10-24 12:40] LABS: INTERNATIONAL NORMALIZED RATIO 1.61 (0.93-1.1); PROTHROMBIN TIME 16.8 Seconds (9.6-11.5)
== END | disposition home or self-care (01) ==
LOC: LAB 12:13
PROVIDERS: ATTEND Internal Medicine Cardiovascular Disease
DX: I26.09 Other pulmonary embolism with acute cor pulmonale (principal)
CPT/HCPCS: 36415; 85610

== ENCOUNTER → 2020-10-30 | Outpatient (CLI) | payer MEDICARE ==
[2020-10-30 15:04] LABS: INTERNATIONAL NORMALIZED RATIO 1.22 (0.93-1.1); PROTHROMBIN TIME 12.9 Seconds (9.6-11.5)
== END | disposition home or self-care (01) ==
LOC: LAB 14:33
PROVIDERS: ATTEND Internal Medicine Cardiovascular Disease
DX: I26.09 Other pulmonary embolism with acute cor pulmonale (principal)
CPT/HCPCS: 36415; 85610

== ENCOUNTER → 2020-11-07 | Outpatient (CLI) | payer MEDICARE ==
[2020-11-07 14:41] LABS: INTERNATIONAL NORMALIZED RATIO 5.79 (0.93-1.1)
== END | disposition home or self-care (01) ==
LOC: LAB 14:13
PROVIDERS: ATTEND Internal Medicine Cardiovascular Disease
DX: I26.09 Other pulmonary embolism with acute cor pulmonale (principal)
CPT/HCPCS: 36415; 85610

== ENCOUNTER → 2020-11-09 | Outpatient (CLI) | payer MEDICARE ==
[2020-11-09 16:49] LABS: INTERNATIONAL NORMALIZED RATIO 2.09 (0.93-1.1); PROTHROMBIN TIME 21.6 Seconds (9.6-11.5)
== END | disposition home or self-care (01) ==
LOC: LAB 16:01
PROVIDERS: ATTEND Internal Medicine Cardiovascular Disease
DX: I26.09 Other pulmonary embolism with acute cor pulmonale (principal)
CPT/HCPCS: 36415; 85610

== ENCOUNTER 2020-11-21 12:21 | Outpatient (CLI) | payer MEDICARE ==
[2020-11-21 12:43] LABS: INTERNATIONAL NORMALIZED RATIO 1.6 (0.93-1.1); PROTHROMBIN TIME 16.7 Seconds (9.6-11.5)
== END 2020-11-21 23:59 | disposition home or self-care (01) ==
LOC: LAB 12:21
PROVIDERS: ATTEND Internal Medicine Cardiovascular Disease
DX: I26.09 Other pulmonary embolism with acute cor pulmonale (principal)
CPT/HCPCS: 36415; 85610

== ENCOUNTER 2020-12-04 07:19 | Day surgery (SDC) | payer MEDICARE ==
[~2020-12-04] VITALS: Ht 165.1 cm; Wt 59.1 kg
[2020-12-04] MEDS ORDERED: LEVO88TA4 PO (07:57)
[2020-12-04] MEDS ORDERED: Iron PO (07:57)
[2020-12-04] MEDS ORDERED: WARF-36 PO (07:57)
[2020-12-04] MEDS ORDERED: DIPHENHYDRAMINE 50 MG/ML, 1ML IVPush ONE (08:00)
[2020-12-04] MEDS ORDERED: LIDOCAINE-MPF 1%, 5ML ONE (08:14)
[2020-12-04] MEDS ORDERED: FENTANYL PF 100 MCG/2ML ONE (08:14)
[2020-12-04] MEDS ORDERED: MIDAZOLAM 1 MG/ML, 2ML ONE (08:14)
[2020-12-04 08:20] VITALS: BP 116/76
[2020-12-04 08:31] LABS: BASOPHILS % (AUTO) 1 % (0-1); EOSINOPHILS % (AUTO) 1 % (1-7); LYMPHOCYTES % (AUTO) 17 % (22-44); MEAN CORPUSCULAR HEMOGLOBIN 24.2 pg (27.0-34.8); MEAN CORPUSCULAR HGB CONC 31.6 g/dL (32.4-35.8); MEAN PLATELET VOLUME 7.8 fL (7.4-10.4); MONOCYTES % (AUTO) 11 % (2-9); NEUTROPHILS % (AUTO) 70 % (42-75); PLATELET COUNT 303 x10^3/uL (130-400); RED BLOOD COUNT 5.42 x10^6/uL (3.82-5.3); RED CELL DISTRIBUTION WIDTH 25.4 % (9.6-15.2)
[2020-12-04] MEDS ORDERED: DIPHENHYDRAMINE 50 MG/ML, 1ML ONE (08:35)
[2020-12-04 08:38] LABS: INTERNATIONAL NORMALIZED RATIO 1.03 (0.93-1.1)
[2020-12-04 08:39] LABS: ANION GAP 7 mmol/L (5-15); CALCIUM 8.4 mg/dL (8.5-10.1); CHLORIDE 106 mmol/L (98-107)
== END 2020-12-04 11:05 | disposition home or self-care (01) ==
LOC: CACL 07:19
PROVIDERS: ATTEND Internal Medicine Cardiovascular Disease
DX: I27.20 Pulmonary hypertension, unspecified (principal); Z79.899 Other long term (current) drug therapy; Z86.711 Personal history of pulmonary embolism
CPT/HCPCS: 36415; 80048; 83880; 85025; 85610; 93451; 99156; C1894; J1200; J2250; J3010

== ENCOUNTER 2020-12-14 05:55 | Emergency (ER) | payer MEDICARE ==
[~2020-12-14] VITALS: Ht 167.6 cm; Wt 63.3 kg
[~2020-12-14 05:55] MED LIST changes: +Iron PO; +LEVO88TA4 PO; +WARF-36 PO
[2020-12-14] MEDS ORDERED: MAALOX/HYOSCYAMINE/LIDOCAINE 45 ML BTL ONE (06:16)
[2020-12-14] MEDS ORDERED: ONDANSETRON 2MG/ML, 2ML ONE ×2 (06:16→08:30)
[2020-12-14] MEDS ORDERED: MAALOX/HYOSCYAMINE/LIDOCAINE 45 ML BTL PO ONE (06:30)
[2020-12-14] MEDS ORDERED: ONDANSETRON 2MG/ML, 2ML IVPush ONE ×2 (06:30→08:30)
[2020-12-14] MEDS ORDERED: SODIUM CHLORIDE FLUSH 10ML SYR IVF ONE (06:30)
[2020-12-14] MEDS ORDERED: SODIUM CHLORIDE 0.9% 1,000 ML IV ONE (06:30)
[2020-12-14 06:48] LABS: BASOPHILS % (AUTO) 1 % (0-1); EOSINOPHILS % (AUTO) 2 % (1-7); LYMPHOCYTES % (AUTO) 24 % (22-44); MEAN CORPUSCULAR HEMOGLOBIN 24.9 pg (27.0-34.8); MEAN PLATELET VOLUME 7.9 fL (7.4-10.4); MONOCYTES % (AUTO) 7 % (2-9); NEUTROPHILS % (AUTO) 67 % (42-75); PLATELET COUNT 361 x10^3/uL (130-400); RED BLOOD COUNT 5.31 x10^6/uL (3.82-5.3); RED CELL DISTRIBUTION WIDTH 24.8 % (9.6-15.2)
--- NOTE | 2020-12-14 06:48 | NUR ---
BEDSIDE REPORT FROM TAY MARTINS, ASSUMING CARE OF PATIENT AT THIS TIME.
[2020-12-14 06:59] LABS: ALANINE AMINOTRANSFERASE 40 U/L (12-78); ANION GAP 6 mmol/L (5-15); CALCIUM 7.8 mg/dL (8.5-10.1); CHLORIDE 106 mmol/L (98-107); CREATININE 1.02 mg/dL (0.55-1.02)
[2020-12-14 07:03] LABS: ALKALINE PHOSPHATASE 126 U/L (45-117); BILIRUBIN,TOTAL 0.4 mg/dL (0.2-1.0); TOTAL PROTEIN 7.6 g/dL (6.4-8.2); TROPONIN I < 0.015 ng/mL (0.000-0.045)
[2020-12-14 07:14] LABS: ANISOCYTOSIS 1+; MICROCYTOSIS 1+; OVALOCYTES 1+; POLYCHROMASIA 1+; TEAR DROPS 1+
[2020-12-14 07:15] LABS: <PLATELET ESTIMATE> ADEQUATE; <PLT MORPHOLOGY> NORMAL PLT MORPH
--- NOTE | 2020-12-14 07:24 | NUR ---
PATIENT TO CT SCAN.
[2020-12-14 07:33] LABS: INTERNATIONAL NORMALIZED RATIO 2.81 (0.93-1.1); PROTHROMBIN TIME 28.6 Seconds (9.6-11.5)
--- NOTE | 2020-12-14 07:58 | NUR ---
LATE ENTRY DUE TO PATIENT CARE: PATIENT BACK FROM CT, REPORTS ABD PAIN RESOLVED, NOW C/O 5/10 RIGHT-SIDED CHEST PAIN. CONNECTED TO MONITOR, VSS. ERMD NOTIFIED, NITRO AND REPEAT EKG ORDERED. MEDICATION ADMINSITERED AND EKG DONE.
[2020-12-14] MEDS ORDERED: NITROGLYCERIN SINGLE TAB 0.4 MG SL PRN (08:00)
[2020-12-14] MEDS ORDERED: NITROGLYCERIN SINGLE TAB 0.4 MG SL ONE (08:01)
[2020-12-14] MEDS ORDERED: OMNIPAQUE 350 MG/ML, 100ML BOTTLE ONE (08:02)
[2020-12-14] MEDS ORDERED: MORPHINE SULFATE 4 MG/ML, 1ML ONE (08:30)
[2020-12-14] MEDS ORDERED: MORPHINE SULFATE 4 MG/ML, 1ML IVPush PRN (08:30)
--- NOTE | 2020-12-14 08:41 | NUR ---
PATIENT SITT[facility] IN [facility], RIGHT-SIDED CHEST PAIN AT 5/10, MEDICATED PER eMAR, CONNECTED TO MONITOR, VSS, O2 SATURATION 93% ON RA, CALL LIGHT WITHIN REACH.
--- NOTE | 2020-12-14 08:58 | NUR ---
ERMD AT BEDSIDE TO DISCUSS POC.
[2020-12-14 09:49] VITALS: BP 124/78
--- NOTE | 2020-12-14 10:07 | NUR ---
IV removed with tip intact. Patient given discharge instructions and they have confirmed that they understand the instructions. Patient ambulatory with steady gait. NAD, all questions answered appropriately, denies additional needs at this time. No personal belongings left in room after discharge.
== END 2020-12-14 10:08 | disposition home or self-care (01) ==
LOC: ED 06:25
DX: R10.13 Epigastric pain (principal); R07.2 Precordial pain; R94.31 Abnormal electrocardiogram [ECG] [EKG]; E03.9 Hypothyroidism, unspecified
CPT/HCPCS: 36415; 71045; 74177; 80053; 83690; 83880; 84484; 85025; 85610; 93005; 96361; 96374; 96375; 96376; 99285; J2270; J2405; J7030; Q9967